=== PATIENT | male | born 1970 | race Hispanic/Latino ===

== ENCOUNTER 2020-05-26 17:59 | Inpatient (IN) | payer SELFPAY ==
[~2020-05-26 17:59] MED LIST: Iopamidol-370 76% 500 ML 1 ML ONE
[2020-05-26 18:27] LABS: #Eosinphils 0.1 thou/uL (0.0-0.7); #Lymphocytes 3.2 thou/uL (1.20-3.40); #Monocytes 0.7 thou/uL (0.11-0.59); #Neutrophils 5.5 thou/uL (1.40-6.50); %Basophils 0.4 % (0.0-1.0); %Eosinophils 1.2 % (0.0-10.0); %Lymphocytes 33.8 % (21.0-51.0); %Monocytes 6.8 % (0.0-10.0); %Neutrophils 57.7 % (42.0-75.0); Hemoglobin 14.7 g/dL (14.0-18.0); Mean Corpuscular HGB CONC 34.9 g/dL (32.0-36.0); Mean Corpuscular Hemoglobin 31.8 pg (27.0-31.0); Mean Platelet Volume 8.8 fL (7.4-10.4); Platelet Count 220 thou/uL (130-400); RBC Distribution Width 11.4 % (11.5-14.5); Red Blood Cell (RBC) Count 4.63 mill/uL (4.70-6.10); White Blood Cell (WBC) Count 9.5 thou/uL (4.8-10.8)
[2020-05-26 18:35] LABS: INR-International Normal Ratio 0.9; PTT 30.7 sec (22.9-36.1); Prothrombin Time 12.6 sec (12.0-14.7)
[2020-05-26 18:44] LABS: ALT (SGPT) 21 U/L (8-55); AST (SGOT) 16 U/L (5-34); Albumin 4.3 g/dL (3.5-5.0); Alkaline Phosphatase 194 U/L (40-110); Anion Gap 15 mmol/L (10-20); BUN (Urea Nitrogen) 15 mg/dL (8.9-20.6); Bilirubin, Total 0.3 mg/dL (0.2-1.2); Calc. Creatinine Clearance 0 mL/min (70-130); Calcium 9.6 mg/dL (7.8-10.44); Carbon Dioxide 22 mmol/L (22-29); Chloride 100 mmol/L (98-107); Globulin 3.3 g/dL (2.4-3.5); Glucose 471 mg/dL (70-105); Potassium 4.1 mmol/L (3.5-5.1); Protein, Total 7.6 g/dL (6.0-8.3); Sodium 133 mmol/L (136-145)
[2020-05-26] MEDS ORDERED: Aspirin 325 MG TAB ONE (21:21)
[2020-05-27 01:38] VITALS: BMI 29.7
[2020-05-27] MEDS ORDERED: Labetalol HCl 100 MG/20 ML VIAL SLOW IVP PRN (01:59)
[2020-05-27] MEDS ORDERED: hydrALAZINE 20 MG/ML VIAL SLOW IVP PRN (01:59)
[2020-05-27] MEDS ORDERED: Atorvastatin Calcium 40 MG TAB PO SCH ×3 (02:00→21:00)
[2020-05-27] MEDS ORDERED: HumaLOG 300 UNITS/3 ML VIAL SC PRN (02:02)
[2020-05-27] MEDS ORDERED: Dextrose 5% in Water 1,000 ML IV PRN (02:02)
[2020-05-27] MEDS ORDERED: Dextrose 50% Abboject 50 ML SYRINGE SLOW IVP PRN (02:02)
[2020-05-27] MEDS ORDERED: Ondansetron ODT 4 MG TAB PO PRN (02:03)
[2020-05-27] MEDS ORDERED: Senokot S 8.6-50 MG TAB PO PRN (02:03)
[2020-05-27] MEDS ORDERED: Calcium Carbonate 500 MG ChewTAB PO PRN (02:03)
[2020-05-27] MEDS ORDERED: Acetaminophen 325 MG TAB PO PRN (02:03)
[2020-05-27 05:10] LABS: #Basophils 0.1 thou/uL (0.0-0.2); #Eosinphils 0.1 thou/uL (0.0-0.7); #Monocytes 0.7 thou/uL (0.11-0.59); #Neutrophils 5.1 thou/uL (1.40-6.50); %Basophils 0.7 % (0.0-1.0); %Eosinophils 1.4 % (0.0-10.0); %Lymphocytes 25.2 % (21.0-51.0); %Monocytes 9.2 % (0.0-10.0); %Neutrophils 63.6 % (42.0-75.0); Hemoglobin 14.2 g/dL (14.0-18.0); Mean Corpuscular HGB CONC 35.5 g/dL (32.0-36.0); Mean Corpuscular Hemoglobin 32.3 pg (27.0-31.0); Mean Platelet Volume 8.7 fL (7.4-10.4); Platelet Count 199 thou/uL (130-400); RBC Distribution Width 11.2 % (11.5-14.5); Red Blood Cell (RBC) Count 4.39 mill/uL (4.70-6.10); White Blood Cell (WBC) Count 8.1 thou/uL (4.8-10.8)
[2020-05-27 05:33] LABS: Anion Gap 12 mmol/L (10-20); BUN (Urea Nitrogen) 13 mg/dL (8.9-20.6); Calc. Creatinine Clearance 123 mL/min (70-130); Calcium 9.4 mg/dL (7.8-10.44); Carbon Dioxide 26 mmol/L (22-29); Chloride 102 mmol/L (98-107); Cholesterol 206 mg/dl (< 200 Desired); Glucose 312 mg/dL (70-105); HDL Cholesterol 51 mg/dL (>60 Neg Risk); LDL Cholesterol, Calculated 137 mg/dL; Magnesium 1.8 mg/dL (1.6-2.6); Potassium 3.9 mmol/L (3.5-5.1); Sodium 136 mmol/L (136-145); Triglycerides 92 mg/dL (Less than 150)
[2020-05-27 05:58] LABS: Thyroid Stimulating Hormone 1.9312 uIU/mL (0.35-4.94)
[2020-05-27] MEDS: HumaLOG 300 UNITS/3 ML VIAL SC PRN ×3 (06:45→17:30)
[2020-05-27 09:34] LABS: SARS-CoV-2 PCR by NAA Not Detected (NotDetected)
[2020-05-27] MEDS: Aspirin 325 mg Enteric Coated Tablet PO SCH (09:38)
[2020-05-27] MEDS: Famotidine 20 MG TAB PO SCH ×2 (09:38→22:05)
[2020-05-28] MEDS: HumaLOG 300 UNITS/3 ML VIAL SC PRN ×2 (06:23→11:30)
[2020-05-28] MEDS ORDERED: Lisinopril 5 MG TAB PO SCH (09:00)
[2020-05-28] MEDS: Aspirin 325 mg Enteric Coated Tablet PO SCH (09:18)
[2020-05-28] MEDS: Famotidine 20 MG TAB PO SCH (09:21)
[2020-05-28 12:32] VITALS: BP 125/85; TEMP 97.6
== END 2020-05-28 12:25 | disposition home or self-care (01) | DRG 65 ==
LOC: ERS 17:59 → 2SW 21:59 → OBSVTOIN 05-27 02:19
PROVIDERS: ADMIT Internal Medicine; ATTEND Hospitalist
DX: I63.9 Cerebral infarction, unspecified (principal); G81.94 Hemiplegia, unspecified affecting left nondominant side; E11.9 Type 2 diabetes mellitus without complications; Z20.822 Contact with and (suspected) exposure to COVID-19; I16.0 Hypertensive urgency; R29.702 NIHSS score 2; R91.1 Solitary pulmonary nodule; Z79.84 Long term (current) use of oral hypoglycemic drugs
CPT/HCPCS: 36415; 36416; 70450; 70496; 70498; 70551; 71045; 80048; 80053; 80061; 82607; 82746; 83036; 83605; 83735; 84443; 84484; 85025; 85610; 85730; 87635; 93005; 93306; G0378; J1815; Q9967; U0003; U0005

== ENCOUNTER 2025-01-31 19:24 | Emergency (ER) | payer SELFPAY ==
[2025-01-31] MEDS ORDERED: Ibuprofen 800 MG TAB ONE (22:54)
[2025-01-31] MEDS ORDERED: Methocarbamol 500 MG TAB ONE (23:29)
== END 2025-01-31 23:30 | disposition home or self-care (01) ==
LOC: ERS 19:24
DX: S83.92XA Sprain of unspecified site of left knee, initial encounter (principal); E11.9 Type 2 diabetes mellitus without complications; X50.9XXA Other and unspecified overexertion or strenuous movements or postures, initial encounter; Y93.89 Activity, other specified
CPT/HCPCS: 99283

== ENCOUNTER 2025-02-10 22:07 | Inpatient (IN) | payer BC, SELFPAY ==
[~2025-02-10 22:07] MED LIST changes: -Iopamidol-370 76% 500 ML 1 ML ONE; +Iopamidol-370 76% 500 ML MDV (1 ML CHARGE) ONE
[2025-02-10 22:38] LABS: #Basophils 0.03 10x3/uL (0.0-0.2); #Eosinophils 0.11 10x3/uL (0.0-0.7); #Monocytes 0.69 10x3/uL (0.11-0.59); #Neutrophils 4.35 10x3/uL (1.40-6.50); %Basophils 0.4 % (0.0-1.0); %Eosinophils 1.4 % (0.0-10.0); %Lymphocytes 33.3 % (21.0-51.0); %Monocytes 8.9 % (0.0-10.0); %Neutrophils 55.9 % (42.0-75.0); Hematocrit 42.8 % (42.0-52.0); Hemoglobin 14.9 g/dL (14.0-18.0); Mean Corpuscular Hemoglobin 29.9 pg (27.0-31.0); Mean Corpuscular Volume 85.8 fL (78.0-98.0); Platelet Count 238 10x3/uL (130-400); Red Blood Cell (RBC) Count 4.99 mill/uL (4.70-6.10); White Blood Cell (WBC) Count 7.78 10x3/uL (4.8-10.8)
[2025-02-10 22:50] LABS: INR-International Normal Ratio 1.0; PTT 31.6 sec (22.9-36.1); Prothrombin Time 12.8 sec (12.0-14.7)
[2025-02-10 23:02] LABS: ALT (SGPT) 22 U/L (Less than 45); AST (SGOT) 25 U/L (11-34); Albumin 4.4 g/dL (3.1-4.5); Alkaline Phosphatase 157 U/L (40-110); Anion Gap 16 mmol/L (10-20); BUN (Urea Nitrogen) 20 mg/dL (8.4-25.7); Bilirubin, Total 0.3 mg/dL (0.3-1.2); Calc. Creatinine Clearance 0 mL/min (70-130); Calcium 10.6 mg/dL (7.8-10.44); Carbon Dioxide 23 mmol/L (22-29); Chloride 102 mmol/L (98-107); Globulin 3.2 g/dL (2.4-3.5); Glucose 452 mg/dL (70-105); Potassium 4.3 mmol/L (3.5-5.1); Sodium 137 mmol/L (136-145)
[2025-02-10 23:11] LABS: Actual Bicarbonate (HCO3v) 24.0 mEq/L (22-28); Base Excess 0.4 mEq/L (-2.0 to +3.0); Calcium, Ionized (venous) 1.18 mmol/L (1.16-1.32); Chloride (VBG) 99 mmol/L (98-106); Hematocrit-VBG 44 % (42.0-52.0); Hemoglobin (Hb) 15.0 g/dL (13.1-17.2); Potassium (VBG) 4.07 mmol/L (3.70-5.30); Sodium 137 mmol/L (133-146)
[2025-02-10] MEDS ORDERED: hydrALAZINE 20 MG/ML VIAL SLOW IVP PRN (23:53)
[2025-02-10] MEDS ORDERED: Ondansetron PF 4 MG/2 ML Vial IVP PRN (23:53)
[2025-02-11] MEDS ORDERED: Glucagon 1 MG/ML KIT IM PRN (00:40)
[2025-02-11] MEDS ORDERED: Dextrose 50% Abboject 50 ML SYRINGE SLOW IVP PRN (00:40)
[2025-02-11 01:40] VITALS: BMI 29.6
[2025-02-11 04:15] LABS: #Basophils 0.04 10x3/uL (0.0-0.2); #Eosinophils 0.13 10x3/uL (0.0-0.7); #Monocytes 0.90 10x3/uL (0.11-0.59); #Neutrophils 4.68 10x3/uL (1.40-6.50); %Basophils 0.5 % (0.0-1.0); %Eosinophils 1.5 % (0.0-10.0); %Lymphocytes 32.4 % (21.0-51.0); %Monocytes 10.5 % (0.0-10.0); %Neutrophils 54.9 % (42.0-75.0); Hematocrit 40.1 % (42.0-52.0); Hemoglobin 14.1 g/dL (14.0-18.0); Mean Corpuscular Hemoglobin 30.4 pg (27.0-31.0); Mean Corpuscular Volume 86.4 fL (78.0-98.0); Platelet Count 220 10x3/uL (130-400); Red Blood Cell (RBC) Count 4.64 mill/uL (4.70-6.10); White Blood Cell (WBC) Count 8.54 10x3/uL (4.8-10.8)
[2025-02-11 04:24] LABS: Anion Gap 12 mmol/L (10-20); BUN (Urea Nitrogen) 18 mg/dL (8.4-25.7); Calc. Creatinine Clearance 144 mL/min (70-130); Calcium 9.4 mg/dL (7.8-10.44); Carbon Dioxide 26 mmol/L (22-29); Cardiac Risk 3.7 (Less than 4.5); Chloride 106 mmol/L (98-107); Cholesterol 223 mg/dl (< 200 Desired); Glucose 264 mg/dL (70-105); HDL Cholesterol 61 mg/dL (>60 Neg Risk); LDL Cholesterol, Calculated 146 mg/dL; Potassium 3.9 mmol/L (3.5-5.1); Sodium 140 mmol/L (136-145); Triglycerides 82 mg/dL (Less than 150)
[2025-02-11] MEDS: Insulin Glargine 30 UNITS/0.3 ML VIAL SC SCH (19:56)
[2025-02-12 04:15] LABS: Anion Gap 11 mmol/L (10-20); BUN (Urea Nitrogen) 15 mg/dL (8.4-25.7); Calc. Creatinine Clearance 130 mL/min (70-130); Calcium 9.2 mg/dL (7.8-10.44); Carbon Dioxide 28 mmol/L (22-29); Cardiac Risk 4.3 (Less than 4.5); Chloride 103 mmol/L (98-107); Cholesterol 234 mg/dl (< 200 Desired); Glucose 213 mg/dL (70-105); HDL Cholesterol 54 mg/dL (>60 Neg Risk); LDL Cholesterol, Calculated 154 mg/dL; Potassium 4.0 mmol/L (3.5-5.1); Sodium 138 mmol/L (136-145); Triglycerides 132 mg/dL (Less than 150)
[2025-02-12] MEDS ORDERED: metFORMIN XR 500 MG ER.TAB PO SCH (08:00)
[2025-02-12] MEDS: metFORMIN 500 MG TAB PO SCH (08:42)
[2025-02-12] MEDS: Lisinopril 20 MG TAB PO SCH (08:43)
[2025-02-12] MEDS ORDERED: Lisinopril 5 MG TAB PO SCH (09:00)
[2025-02-12 11:58] VITALS: BP 156/75; TEMP 97.5
[2025-02-12] MEDS ORDERED: metFORMIN 500 MG TAB PO SCH (17:00)
== END 2025-02-12 15:05 | disposition home or self-care (01) | DRG 66 ==
LOC: ERS 22:07 → 2SE 23:51 → OBSVTOIN 02-11 10:43
PROVIDERS: ADMIT Internal Medicine; ATTEND Hospitalist
DX: I63.89 Other cerebral infarction (principal); R47.81 Slurred speech; R13.10 Dysphagia, unspecified; E11.65 Type 2 diabetes mellitus with hyperglycemia; I10 Essential (primary) hypertension; R29.700 NIHSS score 0; I69.922 Dysarthria following unspecified cerebrovascular disease
CPT/HCPCS: 36415; 36416; 70496; 70498; 70551; 80048; 80053; 80061; 82805; 83036; 84484; 85025; 85610; 85730; 93005; 93306; 94760; G0378; J1815; J7030; Q9967